=== PATIENT | male | born 1995 | race Native Hawaiian/Other Pacific Islander ===

== ENCOUNTER 2018-03-07 17:50 | Emergency (ER) | payer BC ==
[~2018-03-07] VITALS: Ht 190.5 cm; Wt 90.7 kg
[~2018-03-07 17:50] MED LIST: BUPR8SUB2 PO; XANAX XR2 MG OR
[2018-03-07 19:42] VITALS: BP 129/83; TEMP 98.8
== END 2018-03-07 19:44 | disposition home or self-care (01) ==
LOC: ED 17:50
DX: K92.0 Hematemesis (principal); R11.2 Nausea with vomiting, unspecified
CPT/HCPCS: 36415; 99282

== ENCOUNTER 2018-06-13 16:18 | Emergency (ER) | payer BC ==
[~2018-06-13] VITALS: Ht 190.5 cm; Wt 90.7 kg
[2018-06-13 17:04] VITALS: BP 139/83; TEMP 97
== END 2018-06-13 19:19 | disposition home or self-care (01) ==
LOC: ED 16:18
DX: R05 Cough (principal); R50.9 Fever, unspecified
CPT/HCPCS: 99281

== ENCOUNTER 2018-12-07 17:35 | Emergency (ER) | payer BC ==
[~2018-12-07] VITALS: Ht 190.5 cm; Wt 90.7 kg
[2018-12-07 19:15] VITALS: BP 132/87; TEMP 98.3
== END 2018-12-07 19:15 | disposition home or self-care (01) ==
LOC: ED 17:35
DX: L03.213 Periorbital cellulitis (principal)
CPT/HCPCS: 99282